=== PATIENT | female | born 1935 | race Asian ===

== ENCOUNTER 2025-03-31 17:19 | Emergency (ER) | payer MEDICARE, MEDICAID ==
[~2025-03-31] VITALS: Ht 152.4 cm; Wt 50.0 kg
[2025-03-31 18:15] VITALS: PULSE 97; RESP 16; O2SAT 94
--- NOTE | 2025-03-31 19:41 | ED.PDOC ---
Back pain HPI HPI Comments 89 y/o F, BIBA, presents to the ED for CC of back pain. EMS reports, patient is coming from [facility] home where she c/o lower lumbar back pain. Patient is a poor historian d/t language barrier; no other symptoms or modifying factors are obtainable. Chief Complaint: Back Pain Time Seen by MD: 19:00 Reviewed Notes: Nurses Notes, Medications, Allergies Allergies: Coded Allergies: UNOBTAINABLE (Unverified , 03/31/25) LANGUAGE BARRIER Information Source: Patient Mode of Arrival: EMS Timing: Days Duration: Since onset Location of Back pain: (B) Lumbar Severity: Moderate Prehospital treatment: None Onset: Spontaneous Modifying Factors: Nothing Associated signs and symptoms: None Past Medical History PAST MEDICAL HISTORY: Denies Surgical History: Denies all surgeries CABINET BUILDER History: Denies all CABINET BUILDER Hx Family History Family History: Unknown Social History Smoker: Unknown Alcohol: Unknown Drugs: Unknown Lives In: Other ([facility] home) Constitutional: denies: chills, diaphoresis, fatigue, fever, malaise, sweats, weakness, others EENTM: denies: blurred vision, double vision, ear bleeding, ear discharge, ear drainage, ear pain, ear ringing, eye pain, eye redness, hearing loss, mouth pain, mouth swelling, nasal discharge, nose bleeding, nose congestion, nose pain, photophobia, tearing, throat pain, throat swelling, voice changes, others Respiratory: denies: cough, hemoptysis, orthopnea, SOB at rest, shortness of breath, SOB with excertion, stridor, wheezing, others Cardiovascular: denies: chest pain, dizzy spells, diaphoresis, Dyspnea on exertion, edema, irregular heart beat, left arm pain, lightheadedness, palpitations, PND, syncope, others Gastrointestinal: denies: abdomen distended, abdominal pain, blood streaked bowels, constipated, diarrhea, dysphagia, difficulty swallowing, hematemesis, melena, nausea, poor appetite, poor fluid intake, rectal bleeding, rectal pain, vomiting, others Genitourinary: denies: abnormal vagina bleeding, burning, dyspareunia, dysuria, flank pain, frequency, hematuria, incontinence, pain, , vagina discharge, urgency, others Neurological: denies: dizziness, fainting, headache, left sided numbness, left sided weakness, numbness, paresthesia, pre-existing deficit, right sided numbness, right sided weakness, seizure, speech problems, tingling, tremors, weakness, others Musculoskeletal: reports: back pain; denies: gout, joint pain, joint swelling, muscle pain, muscle stiffness, neck pain, others Integumetry: denies: bruises, change in color, change in hair/nails, dryness, laceration, lesions, lumps, rash, wounds, others Allergic/Immunocompromised: denies: Difficulty Healing, Frequent Infections, Hives, Itching, others Hematologic/Lymphatic: denies: anemia, blood clots, easy bleeding, easy bruising, swollen glands, others Endocrine: denies: excessive hunger, excessive sweating, excessive thirst, excessive urination, flushing, intolerance to cold, intolerance to heat, unexplained weight gain, unexplained weight loss, others Psychiatric: denies: anxiety, bipolar disorder, depression, hopeless, panic disorder, schizophrenia, sleepless, suicidal, others All Other Systems: Reviewed and Negative Physical Exam General Appearance: No Apparent Distress, Normal HEENT: Normal ENT Inspection, Pharynx Normal Neck: Full Range of Motion, Non-Tender, Normal, Normal Inspection Respiratory: Chest Non-Tender, Lungs Clear, No Accessory Muscle Use, No Respiratory Distress, Normal Breath Sounds Cardiovascular: No Edema, No Murmur, No Gallop, Normal Peripheral Pulses, Regular Rate/Rhythm Breast Exam: Deferred Gastrointestinal: No Organomegaly, Non Tender, No Pulsatile Mass, Normal Bowel Sounds, Soft Genitalia: Deferred Pelvic: Deferred Rectal: Deferred Extremities: No calf tenderness, Normal capillary refill, Normal inspection, Normal range of motion, Non-tender, No pedal edema Musculoskeletal : Apperance: Normal Neurologic: Alert, winder contort operator II-XII nml as Tested, No Motor Deficits, Normal Affect, Normal Mood, No Sensory Deficits Cerebellar Function: Normal Reflexes: Normal Skin: Dry, Normal Color, Warm Lymphatic: No Adenopathy Was a procedure done? Was a procedure done?: No Back Pain Differential Dx Differential Diagnosis: Musculoskeletal Pain X-Ray, Labs, Meds, VS Vital Signs Date Time Temp Pulse Resp B/P (MAP) Pulse Ox O2 Delivery O2 Flow Rate FiO2 04/01/25 11:01 95 22 137/80 (99) 96 04/01/25 10:18 86 12 134/72 04/01/25 10:00 86 14 134/72 (92) 93 04/01/25 09:21 97.1 94 17 155/78 (103) 96 97.1 04/01/25 09:21 Room Air* 0 04/01/25 06:00 98.7 78 16 129/69 (89) 96 98.7 04/01/25 04:00 98.7 77 16 145/72 (96) 96 98.7 04/01/25 02:50 78 13 121/52 04/01/25 02:00 98.7 69 16 110/55 (73) 96 98.7 04/01/25 00:00 98.7 73 16 122/67 (85) 96 98.7 03/31/25 23:45 74 16 97 Room Air* 0 03/31/25 22:00 98.7 69 16 110/55 (73) 96 98.7 03/31/25 20:00 98.7 91 16 140/75 (96) 95 98.7 03/31/25 18:15 98.7 97 16 128/72 (90) 94 98.7 03/31/25 18:15 97 16 94 Room Air* 0 03/31/25 17:40 97 03/31/25 17:38 97.7 104 16 135/85 94 97.7 Lab Test 03/31/25 19:37 Range/Units White Blood Count 11.2 H 4.4-10.8 10^3/uL Red Blood Count 4.47 4.0-5.20 10^6/uL Hemoglobin 12.7 12.2-16.2 g/dL Hematocrit 38.6 36.0-46.0 % Mean Corpuscular Volume 86.5 80.0-100.0 fL Mean Corpuscular Hemoglobin 28.4 28.0-32.0 pg Mean Corpuscular Hemoglobin Concent 32.9 32.0-36.0 g/dL Red Cell Distribution Width 12.6 11.8-14.3 % Platelet Count 410 140-450 10^3/uL Mean Platelet Volume 7.1 6.9-10.8 fL Neutrophils (%) (Auto) 75.9 37.0-80.0 % Lymphocytes (%) (Auto) 14.1 10.0-50.0 % Monocytes (%) (Auto) 8.2 0.0-12.0 % Eosinophils (%) (Auto) 1.4 0.0-7.0 % Basophils (%) (Auto) 0.4 0.0-2.0 % Neutrophils # (Auto) 8.5 1.6-8.6 10 ^3/uL Lymphocytes # (Auto) 1.6 0.4-5.4 10 ^3/uL Monocytes # (Auto) 0.9 0-1.3 10 ^3/uL Eosinophils # (Auto) 0.2 0-0.8 10 ^3/uL Basophils # (Auto) 0 0-0.2 10 ^3/uL Nucleated Red Blood Cells 0.0 % Sodium Level 140 136-145 mmol/L Potassium Level 4.0 3.5-5.1 mmol/L Chloride Level 102 98-107 mmol/L Carbon Dioxide Level 28 20-31 mmol/L Anion Gap 10 5-15 Blood Urea Nitrogen 17 9-23 mg/dL Creatinine 0.84 0.550-1.02 mg/dL Glomerular Filtration Rate Calc 67 >90 mL/min BUN/Creatinine Ratio 20.2 H 10.0-20.0 Serum Glucose 112 H 74-106 mg/dL Calcium Level 8.9 8.7-10.4 mg/dL Microbiology Date/Time Source Procedure Growth Status 04/01/25 06:15 Urine - Catheterized Urine Culture - Final Complete [place] [address] Ph: [phone] DIAGNOSTIC IMAGING Diagnostic Imaging Report : [id number] Signed PATIENT: YAKELIN ZHU ACCT: [id number] UNIT: [id number] : 1935 LOC: ER ROOM / BED: / AGE / SEX: 89 / F ADM STATUS: REG ER SERVICE 26 ORDERING PHYSICIAN: ANGÉLICA CARLTON MD PROCEDURE(s): TS2CT - THORACIC SPINE WO CONTRAS REASON: pain ORDER NUMBER(s): [id number], ACCESSION NUMBER(s): [id number] EXAM: CT THORACIC SPINE WO CONTRAS, CT LS SPINE WO CONTRAST INDICATION: Trauma TECHNIQUE: Axial images of thoracic and lumbar spine have been obtained along with coronal and sagittal reformatted images. All CT scans at this facility use dose modulation, iterative reconstruction, and/or weight based dosing when appropriate to reduce radiation dose to as low as reasonably achievable. COMPARISON: None FINDINGS: [ANATOMY]: Normal thoracic alignment. Normal alignment of the lumbar spine [VERTEBRAL BODIES]: Significant appearance of burst fracture of T11 with es timated 3-4 mm posterior superior vertebral body retropulsion and 20-30 percent superior endplate height loss. [SPINAL CANAL]: Mild spinal canal narrowing posterior to T11 [FACETS]: Opposing endplate degenerative change at L4-5 with vacuum phenomenon. Trace anterolisthesis L4 over Multilevel mild to moderate facet arthropathy. [OTHER]: 3 atelectasis and cystic lung change in bilateral lung bases. Calcified fibroid suspected which appears to be exophytic measuring up to 2.2 cm IMPRESSION: 1. Significant appearance of burst fracture of T11 with estimated 3-4 mm posterior superior vertebral body retropulsion and 20-30 percent superior endplate height loss. ATED BY: AAKASH DOWD MD DICTATED DATE/TIME: 03/31/252152 SIGNED BY: AAKASH DOWD MD SIGNED DATE/TIME: 03/31/252152 CC: [place] [address] Ph: [phone] DIAGNOSTIC IMAGING Diagnostic Imaging Report : [id number] Signed PATIENT: YAKELIN ZHU ACCT: [id number] UNIT: [id number] : 1935 LOC: ER ROOM / BED: / AGE / SEX: 89 / F ADM STATUS: REG ER SERVICE 26 ORDERING PHYSICIAN: ANGÉLICA CARLTON MD PROCEDURE(s): LS2CT - LS SPINE WO CONTRAST REASON: pain ORDER NUMBER(s): [id number], ACCESSION NUMBER(s): [id number] EXAM: CT THORACIC SPINE WO CONTRAS, CT LS SPINE WO CONTRAST INDICATION: Trauma TECHNIQUE: Axial images of thoracic and lumbar spine have been obtained along with coronal and sagittal reformatted images. All CT scans at this facility use dose modulation, iterative reconstruction, and/or weight based dosing when appropriate to reduce radiation dose to as low as reasonably achievable. COMPARISON: None FINDINGS: [ANATOMY]: Normal thoracic alignment. Normal alignment of the lumbar spine [VERTEBRAL BODIES]: Significant appearance of burst fracture of T11 with estimated 3-4 mm posterior superior vertebral body retropulsion and 20-30 percent superior endplate height loss. [SPINAL CANAL]: Mild spinal canal narrowing posterior to T11 [FACETS]: Opposing endplate degenerative change at L4-5 with vacuum phenomenon. Trace anterolisthesis L4 over Multilevel mild to moderate facet arthropathy. [OTHER]: 3 atelectasis and cystic lung change in bilateral lung bases. Calcified fibroid suspected which appears to be exophytic measuring up to 2.2 cm IMPRESSION: 1. Significant appearance of burst fracture of T11 with estimated 3-4 mm p osterior superior vertebral body retropulsion and 20-30 percent superior endplate height loss. Time of 1ST Reevaluation: 19:30 Reevaluation 1ST: Unchanged Patient Education/Counseling: Diagnosis, Treatment Family Education/Counseling: No Family Present Comments I reviewed the hospital records transmitted over from [facility] in [place] patient was discharged on 03/29 for back pain. 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 However the new fractures that we see on our CAT scan was not mentioned there. I consulted Dr. Patel our spine surgeon. He informs me that he will be out of town on Tuesday therefore he is requesting for MRIs of the L-spine T-spine to be done 1st thing in the morning and if it does not show any instabilities, patient will be admitted for pain control. However if the MS suggest anything that requires surgical intervention, Dr. Patel would not be available to provide this service since he will be out of town 1st thing on Tuesday morning. For this reason if any instabilities or any concerns requires surgical intervention is found on the MRIs, patient will need to be transferred to another facility. I will order the MRIs and I was signed out the care of this patient to Dr. Katz in the morning Upon the very initial examination, patient already has significant loss of strength of both lower extremities. She was unable to keep her legs suspended above the bed and was unable to wiggle her feet. And any movement causes severe pain. And although the patient's speaks [place], when I asked her to move her feet, she indicated that she is not able to move them. However, the nurse reports that she saw the patient move her feet. It is unclear whether patient is refusing to move her feet because of pain. I attempted to have the [place] assistant women's soccer coach service to ask patient to move her feet however patient appears to be confused states that she does not have pain her feet. On examination the left foot appears to be cooler than the right. I am having difficulties palpating both dorsalis pedis pulses. He will get a arterial ultrasound to assess for circulation of the extremities. pt was signed out to Dr Katz, who transferred pt to a higher level of care facility Additional Information The following tests were ordered, and results were reviewed by me: CT LS SPINE, CT THORACIC SPINE, BMP, CBC I reviewed and agreed with the following test results read by other provider: CT LS SPINE, CT THORACIC SPINE I discussed treatments and results with medical personnel and: PATIENT Comprehensive systems review obtained and negative except for what is stated in the HPI. SEPSIS Sepsis Screen Date sepsis recognized/suspect: Mar 31, 2025 Time Sepsis recognized/suspect: 1814 Recent Procedure: No On Antibiotic Therapy: No Respiratory Rate >20: No Heart Rate >90: No Temp<36 C (96.8 F) or >38.3 C: No SBP <90 or MAP <65 mmHG: No New Acute Mental Status Change: Yes (UNKNOWN BASELINE) Is the patient on CPAP, BIPAP,: No Physician Orders Electrocardigram (03/31/25 17:55) Thoracic Spine Wo Contras (03/31/25 19:27) Ls Spine Wo Contrast (03/31/25 19:27) Lt Low Ext Art Duplex (04/01/25 08:00) Imaging Transfer Request (04/01/25 06:40) Vital Signs Date Time Temp Pulse Resp B/P (MAP) Pulse Ox O2 Delivery O2 Flow Rate FiO2 04/01/25 11:01 95 22 137/80 (99) 96 04/01/25 10:18 86 12 134/72 04/01/25 10:00 86 14 134/72 (92) 93 04/01/25 09:21 97.1 94 17 155/78 (103) 96 97.1 04/01/25 09:21 Room Air* 0 21 04/01/25 06:00 98.7 78 16 129/69 (89) 96 98.7 04/01/25 04:00 98.7 77 16 145/72 (96) 96 98.7 04/01/25 02:50 78 13 121/52 04/01/25 02:00 98.7 69 16 110/55 (73) 96 98.7 04/01/25 00:00 98.7 73 16 122/67 (85) 96 98.7 03/31/25 23:45 74 16 97 Room Air* 0 03/31/25 22:00 98.7 69 16 110/55 (73) 96 98.7 03/31/25 20:00 98.7 91 16 140/75 (96) 95 98.7 03/31/25 18:15 98.7 97 16 128/72 (90) 94 98.7 03/31/25 18:15 97 16 94 Room Air* 0 03/31/25 17:40 97 03/31/25 17:38 97.7 104 16 135/85 94 97.7 Laboratory Tests Test 03/31/25 19:37 White Blood Count 11.2 10^3/uL (4.4-10.8) H Departure 1 Departure Time of Disposition: 00:56 Impression: Primary Impression: Burst fracture of lumbar vertebra Additional Impressions: Burst fracture of thoracic spine at T10-T11 level Leg weakness, bilateral Disposition: 02 SHORT TERM HOSPITAL Condition: Stable Discharged With: Self Critical Care Note Critical Care Time?: Yes (55 min-critical care time only) Critical care comment: Total critical care time: Approximately 55 minutes Due to a high probability of clinically significant, life threatening deterioration, the patient required my highest level of preparedness to intervene emergently and I personally spent this critical care time directly and personally managing the patient. This critical care time included obtaining a history; examining the patient; pulse oximetry; ordering and review of studies; arranging urgent treatment with development of a management plan; evaluation of patient's response to treatment; frequent reassessment; and, discussions with other providers. This critical care time was performed to assess and manage the high probability of imminent, life-threatening deterioration that could result in multi-organ failure. It was exclusive of separately billable procedures and treating other patients. Stability Stability form required: No Heart Score Heart Score: Heart Score Response (Comments) Value History N/A 0 EKG N/A 0 Age N/A 0 Risk Factors N/A 0 Troponin N/A 0 Total 0 I personally scribed for ANGÉLICA CARLTON MD ([email or web address]) on 03/31/25 at 19:40. Electronically submitted by Jaye Moore ([email or web address]). I personally scribed for ANGÉLICA CARLTON MD ([email or web address]) on 03/31/25 at 20:23. Electronically submitted by Jaye Moore ([email or web address]). I personally scribed for ANGÉLICA CARLTON MD ([email or web address]) on 04/01/25 at 05:46. Electronically submitted by Lissett Lara ([email or web address]). ANGÉLICA CARLTON MD Mar 31, 2025 19:40
[2025-03-31 19:58] LABS: Hematocrit 38.6 % (36.0-46.0); Hemoglobin 12.7 g/dL (12.2-16.2); Mean Corpuscular Hemoglobin 28.4 pg (28.0-32.0); Mean Corpuscular Volume 86.5 fL (80.0-100.0); Nucleated Red Blood Cells % 0.0 %
[2025-03-31 20:03] LABS: Chloride 102 mmol/L (98-107); Potassium 4.0 mmol/L (3.5-5.1); Sodium 140 mmol/L (136-145)
[2025-03-31 20:04] LABS: Anion Gap 10 (5-15); Carbon Dioxide 28 mmol/L (20-31)
[2025-03-31 20:05] LABS: Calcium 8.9 mg/dL (8.7-10.4)
[2025-03-31 20:09] LABS: BUN/Creatinine Ratio 20.2 (10.0-20.0); Blood Urea Nitrogen 17 mg/dL (9-23)
[2025-03-31 20:18] LABS: Glucose 112 mg/dL (74-106)
[2025-03-31] MEDS: fentaNYL CITRATE 100 MCG/2 ML VL IV ONE (20:21)
--- NOTE | 2025-03-31 21:55 | DVH ---
EXAM: CT THORACIC SPINE WO CONTRAS, CT LS SPINE WO CONTRAST INDICATION: Trauma TECHNIQUE: Axial images of thoracic and lumbar spine have been obtained along with coronal and sagittal reformatted images. All CT scans at this facility use dose modulation, iterative reconstruction, and/or weight based dosing when appropriate to reduce radiation dose to as low as reasonably achievable. COMPARISON: None FINDINGS: [ANATOMY]: Normal thoracic alignment. Normal alignment of the lumbar spine [VERTEBRAL BODIES]: Significant appearance of burst fracture of T11 with estimated 3-4 mm posterior superior vertebral body retropulsion and 20-30 percent superior endplate height loss. [SPINAL CANAL]: Mild spinal canal narrowing posterior to T11 [FACETS]: Opposing endplate degenerative change at L4-5 with vacuum phenomenon. Trace anterolisthesis L4 over Multilevel mild to moderate facet arthropathy. [OTHER]: 3 atelectasis and cystic lung change in bilateral lung bases. Calcified fibroid suspected which appears to be exophytic measuring up to 2.2 cm IMPRESSION: 1. Significant appearance of burst fracture of T11 with estimated 3-4 mm posterior superior vertebral body retropulsion and 20-30 percent superior endplate height loss.
[2025-03-31 23:45] VITALS: PULSE 74; RESP 16; O2SAT 97
[2025-04-01] MEDS: HYDROmorphone HCL 2 MG/ML VL/or syr IV ONE ×2 (02:50→10:18)
--- NOTE | 2025-04-01 07:45 | DVH ---
CLINICAL HISTORY: Peripheral arterial disease. TECHNIQUE: Left lower extremity arterial duplex exam was performed. Grayscale, color Doppler, and spectral waveform analysis was performed. COMPARISON: None FINDINGS: Left Lower Extremity: Scattered mild atherosclerotic plaque. No focal occlusion visualized. Monophasic waveforms seen in the anterior tibial, dorsalis pedis, and posterior tibial arteries. Biphasic waveforms are seen in the profunda and proximal SFA. The rest of the left lower extremity arteries demonstrate normal triphasic waveforms. EXAMINATION DATA: LEFT PSV (cm/sec) ASSISTANT ELEMENTARY TEACHER 92 Profunda 65 SFA Prox 99 SFA Mid 81 SFA Dist 89 POP A 91 BROOMCORN PRESS FEEDER 95 DPA 163 MAURISIO 90 IMPRESSION: 1. Findings in the left dorsalis pedis artery are consistent with The 22 49% stenosis category. 2. The rest of the peak systolic velocities in the lower extremities are consistent with the less than 20% stenosis category. 3. Abnormal monophasic waveforms in the anterior tibial, dorsalis pedis, and posterior tibial arteries consistent with peripheral arterial disease.
[2025-04-01 09:21] VITALS: TEMP 97.1
--- NOTE | 2025-04-01 10:04 | ECG ---
[facility] Test Date: 2025-03-31 Test Time: 17:40:47 Pat Name: [place] Department: [facility] ED Patient ID: [facility]-[id number] Room: Gender: F Social Work Administrator: SHAYNA : 1935 Requested By: MARCELO MORGAN Order Number: [id number] Reading MD: Jose Elias Centeno Measurements Intervals [place] Rate: 97 P: 62 KS: 145 QRS: 109 QRSD: 75 T: 5 QT: 340 QTc: 432 Interpretive Statements Sinus rhythm Right axis deviation Electronically Signed On 04-01-2025 15:28:43 PST by Jose Elias Centeno Please click the below link to view image of tracing.
[2025-04-01] MEDS: ONDANSETRON HCL 4 MG/2 ML VIAL IV ONE (10:15)
[2025-04-01 11:01] VITALS: BP 137/80; PULSE 95; RESP 22; O2SAT 96
== END 2025-04-01 12:48 | disposition short-term general hospital (02) ==
LOC: EDBD 17:19 → ER 17:19
DX: S32.001A Stable burst fracture of unspecified lumbar vertebra, initial encounter for closed fracture (principal); S22.081A Stable burst fracture of T11-T12 vertebra, initial encounter for closed fracture; R53.1 Weakness; X58.XXXA Exposure to other specified factors, initial encounter; Y93.89 Activity, other specified; Y92.89 Other specified places as the place of occurrence of the external cause; Y99.8 Other external cause status
CPT/HCPCS: 36415; 72128; 72131; 80048; 85025; 87086; 93005; 93926; 96374; 96375; 96376; 99291; J1100; J1171; J2405; J3010